=== PATIENT | male | born 1945 | race Two or more races ===

== ENCOUNTER 2024-05-25 16:24 | Emergency (ER) | payer OTHER ==
[~2024-05-25] VITALS: Ht 177.8 cm; Wt 87.5 kg
[2024-05-25] MEDS ORDERED: TAMS0.4C PO (16:30)
[2024-05-25] MEDS ORDERED: CRESTOR40 MG PO (16:30)
[2024-05-25] MEDS ORDERED: NEURONTIN300 MG PO (16:31)
[2024-05-25] MEDS ORDERED: LEVOTHYROXINE25 MCG PO (16:31)
[2024-05-25] MEDS ORDERED: METFORMIN HCL500 M3 PO (16:32)
[2024-05-25] MEDS ORDERED: METHYLPREDNISOLONE SOD SUCC 125 MG VIAL IM STA (16:55)
[2024-05-25] MEDS ORDERED: METHYLPREDNISOLONE SOD SUCC 40 MG VIAL ONE (17:10)
[2024-05-25 18:00] LABS: HEMATOCRIT 43.7 % (39.0-48.0); HEMOGLOBIN 14.8 g/dL (13-16.00); MEAN CELL VOLUME 95.5 fL (80.0-100.00); MEAN CORPUSCULAR HEMOGLOBIN 32.4 pg (27.00-32.0); MEAN CORPUSCULAR HGB CONC 33.9 g/dl (32.0-36.0); PLATELET COUNT 288 K/uL (150-450); RED BLOOD COUNT 4.58 M/uL (4.00-6.00); RED CELL DISTRIBUTION WIDTH 14.5 % (11.5-14.5)
== END 2024-05-25 18:30 | disposition home or self-care (01) ==
LOC: ER 16:25
PROVIDERS: General Practice
DX: L50.8 Other urticaria (principal)
CPT/HCPCS: 36415; 96372; 99282; J3490